=== PATIENT | female | born 2000 | race African-American/Black ===

== ENCOUNTER 2020-09-02 17:01 | Emergency (ER) | payer OTHER ==
[~2020-09-02] VITALS: Ht 165.1 cm; Wt 72.6 kg
[2020-09-02] MEDS ORDERED: FLEXERIL PO (18:37)
[2020-09-02] MEDS ORDERED: NAPROSYN500 MG PO (18:37)
[2020-09-02] MEDS ORDERED: TYLENOL325 M1 PO (18:37)
[2020-09-02 19:26] VITALS: BP 123/74
== END 2020-09-02 19:27 | disposition home or self-care (01) ==
LOC: ER 17:01
DX: S43.005A Unspecified dislocation of left shoulder joint, initial encounter (principal); Z91.018 Allergy to other foods; X50.1XXA Overexertion from prolonged static or awkward postures, initial encounter; Y93.89 Activity, other specified; Y92.89 Other specified places as the place of occurrence of the external cause; Y99.8 Other external cause status